=== PATIENT | male | born 1980 | race Caucasian/White ===

== ENCOUNTER 2023-08-15 20:41 | Emergency (ER) | payer OTHER ==
[~2023-08-15] VITALS: Ht 180.3 cm; Wt 101.9 kg
[2023-08-15 21:00] VITALS: TEMP 98.7
[2023-08-15] MEDS: LORazepam 2 MG TAB PO ONE (23:50)
[2023-08-16 01:00] VITALS: BP 115/70; O2SAT 97
== END 2023-08-16 01:23 | disposition home or self-care (01) ==
LOC: M ED 20:41
DX: F41.9 Anxiety disorder, unspecified (principal); F51.01 Primary insomnia; F43.10 Post-traumatic stress disorder, unspecified; Z88.8 Allergy status to other drugs, medicaments and biological substances

== ENCOUNTER 2023-08-26 15:23 | Inpatient (IN) | payer OTHER, MEDICAID ==
[~2023-08-26] VITALS: Ht 175.3 cm; Wt 90.9 kg
[2023-08-26 16:17] LABS: HEMATOCRIT 40.7 % (42.0-52.0); HEMOGLOBIN 13.5 g/dl (13.5-17.5); MEAN CORPUSCULAR HEMOGLOBIN 27.8 pg (27.0-33.0); MEAN CORPUSCULAR HGB CONC 33.2 g/dl (32.0-36.5); MEAN CORPUSCULAR VOLUME 83.7 fl (80.0-96.0); PLATELET COUNT, AUTOMATED 175 10^3/uL (150-450); RED BLOOD COUNT 4.86 10^6/uL (4.30-6.10); WHITE BLOOD COUNT 3.7 10^3/uL (4.0-10.0)
[2023-08-26] MEDS: OLANZapine ORAL DISINTEGRATING TAB 5MG PO ONE (16:20)
[2023-08-26 16:29] LABS: AMPHETAMINES LEVEL URINE POSITIVE (NEGATIVE); BARBITURATES URINE NEGATIVE (NEGATIVE); BENZODIAZEPINES URINE NEGATIVE (NEGATIVE); CANNABINOIDS URINE NEGATIVE (NEGATIVE); COCAINE METABOLITE URINE NEGATIVE (NEGATIVE); METHADONE URINE NEGATIVE (NEGATIVE); OPIATES URINE NEGATIVE (NEGATIVE); PHENCYCLIDINE URINE NEGATIVE (NEGATIVE)
[2023-08-26 16:31] LABS: ETHYL ALCOHOL (ETHANOL) 0.003 % (0.000-0.010)
[2023-08-26 16:32] LABS: SALICYLATE LEVEL < 3.0 MG/DL (<30)
[2023-08-26 16:33] LABS: ALBUMIN 3.9 G/DL (3.2-5.2); ALKALINE PHOSPHATASE 96 U/L (46-116); ALT/SGPT 23 U/L (7.0-40); AST/SGOT 34 U/L (<34); BILIRUBIN,DIRECT 0.1 MG/DL (<0.4); BILIRUBIN,TOTAL 0.3 MG/DL (0.3-1.2); BLOOD UREA NITROGEN 17 MG/DL (9-23); CALCIUM LEVEL 9.2 MG/DL (8.5-10.1); CARBON DIOXIDE LEVEL 29 MMOL/L (20-31); CHLORIDE LEVEL 104 MMOL/L (98-107); CREATININE FOR GFR 0.98 MG/DL (0.70-1.30); GLOMERULAR FILTRATION RATE > 60.0 (>60); GLUCOSE, FASTING 85 MG/DL (60-100); POTASSIUM SERUM 4.3 MMOL/L (3.5-5.1); SODIUM LEVEL 138 MMOL/L (136-145); TOTAL PROTEIN 7.5 G/DL (5.7-8.2)
[2023-08-26 16:35] LABS: THYROID STIMULATING HORMONE 2.198 uIU/ML (0.55-4.78)
[2023-08-26] MEDS: LORazepam 2 MG TAB PO ONE (16:44)
[2023-08-26] MEDS ORDERED: GABA800T4 PO (19:12)
[2023-08-26] MEDS ORDERED: SENN-186 PO (19:12)
[2023-08-26] MEDS ORDERED: WELLTAB38 PO (19:12)
[2023-08-26] MEDS ORDERED: [UNRECOGNIZED DRUG - CODE] MT (19:12)
[2023-08-26] MEDS ORDERED: IBUP1TAB7 PO (19:12)
[2023-08-26] MEDS ORDERED: VYVA20CA PO (19:13)
[2023-08-26] MEDS ORDERED: HOME MED LIST COMPLETE! XX SCH (19:15)
[2023-08-26] MEDS: NICOTINE 21MG/24HR 1 EA TRANSDERMAL TD ONE (19:38)
[2023-08-26] MEDS: LORazepam 2 MG TAB PO STA (23:00)
[2023-08-26] MEDS ORDERED: BUPR8SUB (23:31)
[2023-08-27] MEDS ORDERED: LORazepam 2 MG TAB PO PRN (05:45)
[2023-08-27] MEDS ORDERED: ACETAMINOPHEN TAB 650MG DOSE (2X325MG) PO PRN (05:45)
[2023-08-27] MEDS ORDERED: MAALOX 30 ML SUSP *UDC PO PRN (05:45)
[2023-08-27] MEDS ORDERED: IBUPROFEN 400MG TAB PO PRN (05:45)
[2023-08-27] MEDS ORDERED: MOM 30ML SUSPENSION UDC PO PRN (05:45)
[2023-08-27] MEDS ORDERED: traZODone 50 MG TAB PO PRN (05:45)
[2023-08-27] MEDS: THIAMINE 100 MG TAB PO SCH (07:00)
[2023-08-27] MEDS ORDERED: CLON1TAB8 PO ×2 (07:36→11:39)
[2023-08-27] MEDS ORDERED: BUPR8SUB SL (07:39)
[2023-08-27] MEDS: FOLIC ACID 1MG TAB PO SCH (09:00)
[2023-08-27] MEDS: MULTIVITAMINS/MINERALS THERAP 1 TAB PO SCH (09:00)
[2023-08-27] MEDS: GABAPENTIN 400MG CAP PO ONE (09:05)
[2023-08-27] MEDS: buPROPion **XL** TABLET 150MG (WELLBUTRIN XL) PO ONE (09:05)
[2023-08-27] MEDS: SENNA 8.6 MG TAB (SENOKOT) PO ONE (09:05)
[2023-08-27] MEDS: clonazePAM 1 MG TAB PO ONE (09:05)
[2023-08-27] MEDS: BUPRENORPHINE HCL 8MG SUBINGUAL TABLET SL ONE (09:32)
[2023-08-27] MEDS ORDERED: HOME MED LIST COMPLETE! XX SCH (11:40)
[2023-08-27] MEDS ORDERED: GABAPENTIN 400MG CAP PO SCH (13:00)
[2023-08-27] MEDS: clonazePAM 1 MG TAB PO SCH (13:00)
[2023-08-27] MEDS: NICOTINE 21MG/24HR 1 EA TRANSDERMAL TD SCH (13:19)
[2023-08-27] MEDS: BUPRENORPHINE HCL 8MG SUBINGUAL TABLET SL SCH (15:25)
[2023-08-27] MEDS: GABAPENTIN 400MG CAP PO SCH (15:25)
[2023-08-27] MEDS ORDERED: clonazePAM 1 MG TAB PO SCH (16:00)
[2023-08-27] MEDS ORDERED: IBUPROFEN 800 MG TAB PO SCH (16:00)
[2023-08-27 16:22] VITALS: BP 125/84; TEMP 97.1
[2023-08-27] MEDS: diphenhydrAMINE 25MG CAP PO PRN (17:51)
[2023-08-27] MEDS: SENNA 8.6 MG TAB (SENOKOT) PO SCH (20:11)
[2023-08-27] MEDS: clonazePAM 0.5 MG TAB PO SCH (20:11)
[2023-08-27] MEDS: RAMELTEON 8 MG TAB (ROZEREM) PO PRN (22:23)
[2023-08-28 06:00] VITALS: BP 119/58
[2023-08-28 06:15] VITALS: BP 119/58; TEMP 98.1; O2SAT 98
[2023-08-28] MEDS: buPROPion **XL** TABLET 150MG (WELLBUTRIN XL) PO SCH (08:04)
[2023-08-28] MEDS ORDERED: NICO-314 MT (08:54)
[2023-08-28] MEDS ORDERED: BUPR8SUB SL (08:54)
[2023-08-28] MEDS ORDERED: CLON1TAB8 PO ×2 (08:54)
== END 2023-08-28 10:36 | disposition home or self-care (01) | DRG 755 ==
LOC: M ED 15:23 → M ED INP 08-27 05:44 → M PSY 08-27 09:58
PROVIDERS: ADMIT Internal Medicine; ATTEND Student in an Organized Health Care Education/Training Program
DX: F43.20 Adjustment disorder, unspecified (principal); R45.851 Suicidal ideations; Z81.8 Family history of other mental and behavioral disorders; Z56.0 Unemployment, unspecified; Z63.8 Other specified problems related to primary support group; Z91.51 Personal history of suicidal behavior; Z11.52 Encounter for screening for COVID-19